=== PATIENT | female | born 1990 | race Caucasian/White ===

== ENCOUNTER 2021-04-16 07:25 | Observation (INO) | payer MEDICAID ==
[~2021-04-16] VITALS: Ht 157.5 cm; Wt 78.9 kg
[2021-04-16] MEDS ORDERED: PREN-96 PO ×2 (08:02)
[2021-04-16] MEDS ORDERED: FLUT1AER5 IN ×2 (08:09)
[2021-04-16] MEDS ORDERED: TERBUTALINE SULFATE 1 MG/ML 1ML VIAL SC SCH (09:00)
[2021-04-16] MEDS ORDERED: BETAMETHASONE ACET (30mg/5ml) 5ml Vial 6mg/ml IM SCH (09:15)
[2021-04-16 09:54] LABS: Alcohol, Urine < 3.0 mg/dL (0-10); Amphetamine Screen, Urine NEGATIVE (NEGATIVE); Barbiturate Scree,Urine NEGATIVE (NEGATIVE); Benzodiazephine Screen, Urine NEGATIVE (NEGATIVE); Cannabinoid Screen, Urine NEGATIVE (NEGATIVE); Cocaine Screen, Urine NEGATIVE (NEGATIVE)
[2021-04-16 09:56] LABS: Opiate Scree,Urine NEGATIVE (NEGATIVE); Phencyclidine Screen, Urine NEGATIVE (NEGATIVE); Urine Bacteria FEW /hpf (None Seen); Urine Blood 3+ /uL (Negative); Urine Specific Gravity 1.004 (1.001-1.035); Urine WBC 19 /hpf (0 - 5)
[2021-04-16] MEDS ORDERED: NIF10C PO ×2 (10:13)
== END 2021-04-16 10:38 | disposition home or self-care (01) ==
LOC: LDRP 07:25
PROVIDERS: ADMIT Specialist; ATTEND Specialist
DX: O60.03 Preterm labor without delivery, third trimester (principal); O46.93 Antepartum hemorrhage, unspecified, third trimester; O99.333 Smoking (tobacco) complicating pregnancy, third trimester; F17.210 Nicotine dependence, cigarettes, uncomplicated; Z3A.33 33 weeks gestation of pregnancy; Z79.899 Other long term (current) drug therapy
CPT/HCPCS: 59025; 76805; 76817; 80307; 81001; 81002; 94760; 96372; G0378; J0702; J3105

== ENCOUNTER 2021-04-17 09:22 | Observation (INO) | payer MEDICAID ==
[~2021-04-17] VITALS: Ht 157.5 cm; Wt 78.9 kg
[~2021-04-17 09:22] MED LIST: FLUT1AER5 IN; NIF10C PO; PREN-96 PO
[2021-04-17] MEDS ORDERED: BETAMETHASONE ACET (30mg/5ml) 5ml Vial 6mg/ml IM ONE (09:45)
== END 2021-04-17 10:46 | disposition home or self-care (01) ==
LOC: LDRP 09:22
PROVIDERS: ADMIT Specialist; ATTEND Specialist
DX: O60.03 Preterm labor without delivery, third trimester (principal); O99.333 Smoking (tobacco) complicating pregnancy, third trimester; F17.210 Nicotine dependence, cigarettes, uncomplicated; Z79.899 Other long term (current) drug therapy; Z3A.33 33 weeks gestation of pregnancy
CPT/HCPCS: 59025; 81002; G0378; J0702

== ENCOUNTER 2021-04-18 23:34 | Inpatient (IN) | payer MEDICAID ==
[~2021-04-18] VITALS: Ht 157.5 cm; Wt 78.9 kg
[2021-04-19] VITALS (23 sets, daily range): BP systolic 103–125; BP diastolic 55–78
[2021-04-19] MEDS: NIFEdipine 10 MG CAP PO SCH ×2 (00:18→04:02)
[2021-04-19] MEDS ORDERED: LACTATED RINGER'S 1,000 ML IV SCH (01:15)
[2021-04-19] MEDS: TERBUTALINE SULFATE 1 MG/ML 1ML VIAL SC SCH ×3 (01:16→02:11)
[2021-04-19] MEDS ORDERED: ceFAZolin 1GM/50ML 50 ML IV ONE ×2 (04:30→05:03)
[2021-04-19] MEDS ORDERED: LACTATED RINGER'S 1,000 ML IV ONE (04:30)
[2021-04-19] MEDS ORDERED: SODIUM CITR/CITRIC ACID ORAL SOLN 30 ML PO ONE (04:30)
[2021-04-19 04:54] LABS: Basophils # (auto) 0.2 10 ^3/uL (0-0.2); Basophils % (auto) 0.9 % (0.0-2.0); Eosinophils # (auto) 0 10 ^3/uL (0-0.8); Eosinophils % (auto) 0.1 % (0.0-7.0); Hematocrit 31.1 % (36.0-46.0); Hemoglobin 10.8 g/dL (12.2-16.2); Lymphocytes # (auto) 1.7 10 ^3/uL (0.4-5.4); Lymphocytes % (auto) 8.2 % (10.0-50.0); Mean Corpuscular Hemoglobin 29.3 pg (28.0-32.0); Mean Corpuscular Hgb Conc. 34.7 g/dL (32.0-36.0); Mean Corpuscular Volume 84.3 fL (80.0-100.0); Monocytes # (auto) 1.4 10 ^3/uL (0-1.3); Neutrophils # (auto) 17.3 10 ^3/uL (1.6-8.6); Neutrophils % (auto) 83.8 % (37.0-80.0); Platelet Count (auto) 271 10^3/uL (140-450); Red Blood Cells 3.69 10^6/uL (4.0-5.20); Red Cell Distribution Width 15.6 % (11.8-14.3); White Blood Cell 20.6 10^3/uL (4.4-10.8)
[2021-04-19] MEDS ORDERED: ePHEDrine SULFATE 50 MG/ML AMP IV ONE (05:06)
[2021-04-19] MEDS ORDERED: fentaNYL CITRATE 100 MCG/2 ML VL ONE (05:10)
[2021-04-19] MEDS ORDERED: MORPHINE SULF(PF) 0.5MG/ML 10ML VIAL ONE (05:10)
[2021-04-19 05:12] LABS: INR 0.92 (0.9-1.15); Partial Thromboplastin Time 22.5 sec (23.0-31.2)
[2021-04-19] MEDS ORDERED: TETRACAINE 1% INJ 2 ML VIAL IJ ONE (05:12)
[2021-04-19 05:15] LABS: Albumin 2.9 g/dL (3.4-5.0); Calcium 7.9 mg/dL (8.5-10.1); Potassium 3.4 mmol/L (3.5-5.1)
[2021-04-19 05:17] LABS: Urine Bacteria FEW /hpf (None Seen); Urine Blood Negative /uL (Negative); Urine Specific Gravity 1.003 (1.001-1.035); Urine WBC <1 /hpf (0 - 5)
[2021-04-19 05:18] LABS: BUN/Creatinine Ratio 11.1; Bilirubin, Total 0.3 mg/dL (0.2-1.0); Total Protein 6.8 g/dL (6.4-8.2)
[2021-04-19] MEDS ORDERED: SODIUM CITR/CITRIC ACID ORAL SOLN 30 ML ONE (05:21)
[2021-04-19 05:40] LABS: Amphetamine Screen, Urine NEGATIVE (NEGATIVE); Barbiturate Scree,Urine NEGATIVE (NEGATIVE); Benzodiazephine Screen, Urine NEGATIVE (NEGATIVE); Cannabinoid Screen, Urine NEGATIVE (NEGATIVE); Cocaine Screen, Urine NEGATIVE (NEGATIVE); Opiate Scree,Urine NEGATIVE (NEGATIVE); Phencyclidine Screen, Urine NEGATIVE (NEGATIVE)
[2021-04-19 05:44] LABS: Alcohol, Urine < 3.0 mg/dL (0-10)
[2021-04-19] MEDS ORDERED: ePHEDrine SULFATE 50 MG/ML AMP IV PRN (06:45)
[2021-04-19] MEDS ORDERED: DexAMETHasone SOD PHOS 10MG/1ML VIAL INJ IV PRN (06:45)
[2021-04-19] MEDS ORDERED: GUM (CHEWING) 1 GUM CHEW CHEW ONE (06:45)
[2021-04-19] MEDS ORDERED: ONDANSETRON HCL 4 MG/2 ML VIAL IV PRN ×2 (06:45)
[2021-04-19] MEDS ORDERED: NALOXONE HCL 0.4 MG/ML VIAL IV PRN (06:45)
[2021-04-19] MEDS ORDERED: KETOROLAC TROMETH 30 MG/ML 1ML VIAL IV PRN (06:45)
[2021-04-19] MEDS ORDERED: RHO (D) IMMUNE GLOBULIN 300 MCG INJ IM ONE (06:45)
[2021-04-19] MEDS ORDERED: diphenhdrAMINE HCL 50 MG/1 ML VL IV PRN (06:45)
[2021-04-19] MEDS ORDERED: ceFAZolin 1GM/50ML 50 ML IV SCH (06:45)
[2021-04-19] MEDS ORDERED: NALBUPHINE HCL 10 MG/1ml INJECTION SUBCUT ONE (06:45)
[2021-04-19] MEDS ORDERED: HYDROmorphone HCL 2 MG/ML VL IV PRN (06:45)
[2021-04-19] MEDS ORDERED: KETOROLAC TROMETH 30 MG/ML 1ML VIAL ONE (07:13)
[2021-04-19] MEDS: ACETAMINOPHEN IV 1000 MG/100ML (10MG/ML) IV PRN ×2 (10:00→22:30)
[2021-04-19] MEDS: LACTATED RINGER'S 1,000 ML IV SCH ×4 (10:00→19:05)
[2021-04-19 11:49] LABS: Urine Bacteria NONE SEEN /hpf (None Seen); Urine Blood TRACE /uL (Negative); Urine Specific Gravity 1.016 (1.001-1.035); Urine WBC 1 /hpf (0 - 5)
[2021-04-19 12:07] LABS: Alcohol, Urine < 3.0 mg/dL (0-10); Amphetamine Screen, Urine NEGATIVE (NEGATIVE); Barbiturate Scree,Urine NEGATIVE (NEGATIVE); Benzodiazephine Screen, Urine NEGATIVE (NEGATIVE); Cannabinoid Screen, Urine NEGATIVE (NEGATIVE); Cocaine Screen, Urine NEGATIVE (NEGATIVE); Opiate Scree,Urine NEGATIVE (NEGATIVE); Phencyclidine Screen, Urine NEGATIVE (NEGATIVE)
[2021-04-19] MEDS: ceFAZolin 1GM/50ML 50 ML IV SCH ×2 (13:13→21:37)
[2021-04-19] MEDS: HYDROmorphone HCL 2 MG/ML VL IV PRN ×2 (14:52→19:04)
[2021-04-20] VITALS (14 sets, daily range): BP systolic 110–131; BP diastolic 60–86
[2021-04-20] MEDS: HYDROmorphone HCL 2 MG/ML VL IV PRN (05:21)
[2021-04-20] MEDS: ceFAZolin 1GM/50ML 50 ML IV SCH (05:29)
[2021-04-20 06:07] LABS: RPR Non Reactive (Non Reactive)
[2021-04-20] MEDS ORDERED: ALBUTEROL SULF 2.5 MG/0.5ML(0.5%) NEB SOLN ONE (06:11)
[2021-04-20] MEDS ORDERED: IPRATROPIUM BROM 0.5 MG/2.5ML INH SOL ONE (06:12)
[2021-04-20] MEDS ORDERED: ALBUTEROL SULF 2.5 MG/0.5ML(0.5%) NEB SOLN NEB ONE (06:15)
[2021-04-20] MEDS ORDERED: IPRATROPIUM BROM 0.5 MG/2.5ML INH SOL NEB ONE (06:15)
[2021-04-20] MEDS ORDERED: HYDROcodone-ACET 5/325MG TAB PO PRN (06:30)
[2021-04-20] MEDS: cefTRIAXone 1GM/50ML D5W 50 ML IV SCH ×2 (06:46→09:00)
[2021-04-20 07:53] LABS: Basophils # (auto) 0.1 10 ^3/uL (0-0.2); Basophils % (auto) 0.4 % (0.0-2.0); Eosinophils # (auto) 0.2 10 ^3/uL (0-0.8); Hematocrit 27.9 % (36.0-46.0); Hemoglobin 9.4 g/dL (12.2-16.2); Lymphocytes # (auto) 1.6 10 ^3/uL (0.4-5.4); Lymphocytes % (auto) 8.3 % (10.0-50.0); Mean Corpuscular Hemoglobin 28.7 pg (28.0-32.0); Mean Corpuscular Hgb Conc. 33.7 g/dL (32.0-36.0); Monocytes # (auto) 1.2 10 ^3/uL (0-1.3); Neutrophils # (auto) 16.2 10 ^3/uL (1.6-8.6); Neutrophils % (auto) 84.3 % (37.0-80.0); Platelet Count (auto) 249 10^3/uL (140-450); Red Blood Cells 3.28 10^6/uL (4.0-5.20); Red Cell Distribution Width 15.5 % (11.8-14.3); White Blood Cell 19.2 10^3/uL (4.4-10.8)
[2021-04-20] MEDS ORDERED: IOHEXOL 350 MG/ML 100ML IJ ONE (09:55)
[2021-04-20] MEDS: DOCUSATE SOD 100 MG CAP PO SCH ×2 (10:35→22:02)
[2021-04-20] MEDS: DOCUSATE CALCIUM 240 MG CAP PO SCH (10:35)
[2021-04-20] MEDS: HYDROcodone-ACET 5/325MG TAB PO PRN ×3 (10:35→23:56)
[2021-04-20] MEDS: IBUPROFEN 800 MG TAB PO PRN ×2 (11:54→22:03)
[2021-04-20] MEDS: SIMETHICONE 80 MG CHEWABLE TABLET PO SCH ×3 (11:55→22:02)
[2021-04-20] MEDS ORDERED: FUROSEMIDE 20 MG/2 ML VIAL IV ONE (15:30)
[2021-04-20] MEDS: ALBUTEROL SULF 2.5 MG/0.5ML(0.5%) NEB SOLN NEB PRN ×3 (15:59→23:37)
[2021-04-20] MEDS: guaiFENesin-DM 100/10mg/5ml SYR PO PRN (16:21)
[2021-04-20] MEDS: levoFLOXacin 500MG 100 ML IV SCH (16:22)
[2021-04-20] MEDS ORDERED: POTASSIUM EFFERVESENT TAB 25 MEQ PO ONE (16:30)
[2021-04-20] MEDS: ACETYLCYSTEINE 10 %(100MG/ML) SOL 4ML NEB SCH ×2 (18:27→23:38)
[2021-04-21] VITALS (12 sets, daily range): BP systolic 101–127; BP diastolic 58–90
[2021-04-21] MEDS: IBUPROFEN 800 MG TAB PO PRN ×2 (07:02→14:55)
[2021-04-21] MEDS: SIMETHICONE 80 MG CHEWABLE TABLET PO SCH ×4 (07:02→23:28)
[2021-04-21] MEDS: ACETYLCYSTEINE 10 %(100MG/ML) SOL 4ML NEB SCH ×2 (07:20→11:18)
[2021-04-21] MEDS: ALBUTEROL SULF 2.5 MG/0.5ML(0.5%) NEB SOLN NEB PRN ×5 (07:20→22:46)
[2021-04-21] MEDS: DOCUSATE SOD 100 MG CAP PO SCH ×2 (09:32→23:28)
[2021-04-21] MEDS: DOCUSATE CALCIUM 240 MG CAP PO SCH (09:32)
[2021-04-21] MEDS: cefTRIAXone 1GM/50ML D5W 50 ML IV SCH (09:32)
[2021-04-21] MEDS: levoFLOXacin 500MG 100 ML IV SCH (10:24)
[2021-04-21] MEDS: BUDESONIDE (INHALATION) 0.5 MG/2 ML NEB NEB SCH ×2 (11:18→18:37)
[2021-04-21] MEDS: IPRATROPIUM BROM 0.5 MG/2.5ML INH SOL NEB PRN ×3 (11:18→22:46)
[2021-04-21] MEDS: HYDROcodone-ACET 5/325MG TAB PO PRN ×3 (11:31→23:39)
[2021-04-21] MEDS: LACTATED RINGER'S 1,000 ML IV SCH (12:04)
[2021-04-21] MEDS: guaiFENesin-DM 100/10mg/5ml SYR PO PRN ×2 (17:55→21:04)
[2021-04-22] VITALS (8 sets, daily range): BP systolic 120–134; BP diastolic 66–81
[2021-04-22] MEDS: IBUPROFEN 800 MG TAB PO PRN ×3 (03:38→19:53)
[2021-04-22] MEDS: guaiFENesin-DM 100/10mg/5ml SYR PO PRN ×2 (03:38→10:10)
[2021-04-22] MEDS: SIMETHICONE 80 MG CHEWABLE TABLET PO SCH ×4 (05:50→21:30)
[2021-04-22] MEDS: ALBUTEROL SULF 2.5 MG/0.5ML(0.5%) NEB SOLN NEB PRN ×3 (06:58→21:27)
[2021-04-22] MEDS: BUDESONIDE (INHALATION) 0.5 MG/2 ML NEB NEB SCH ×2 (06:58→21:27)
[2021-04-22] MEDS: IPRATROPIUM BROM 0.5 MG/2.5ML INH SOL NEB PRN ×2 (06:58→14:50)
[2021-04-22] MEDS: HYDROcodone-ACET 5/325MG TAB PO PRN ×3 (08:02→21:30)
[2021-04-22] MEDS: cefTRIAXone 1GM/50ML D5W 50 ML IV SCH (09:14)
[2021-04-22] MEDS: DOCUSATE CALCIUM 240 MG CAP PO SCH (10:09)
[2021-04-22] MEDS: DOCUSATE SOD 100 MG CAP PO SCH ×2 (10:09→21:30)
[2021-04-22] MEDS: levoFLOXacin 500MG 100 ML IV SCH (10:17)
[2021-04-23] VITALS (7 sets, daily range): BP systolic 111–130; BP diastolic 67–83
[2021-04-23] MEDS: HYDROcodone-ACET 5/325MG TAB PO PRN ×3 (02:48→21:54)
[2021-04-23] MEDS: IBUPROFEN 800 MG TAB PO PRN ×2 (05:46→16:06)
[2021-04-23] MEDS: SIMETHICONE 80 MG CHEWABLE TABLET PO SCH ×4 (05:47→21:53)
[2021-04-23] MEDS: ALBUTEROL SULF 2.5 MG/0.5ML(0.5%) NEB SOLN NEB PRN ×3 (06:57→18:35)
[2021-04-23] MEDS: BUDESONIDE (INHALATION) 0.5 MG/2 ML NEB NEB SCH ×2 (06:57→18:36)
[2021-04-23] MEDS: IPRATROPIUM BROM 0.5 MG/2.5ML INH SOL NEB PRN ×3 (06:57→18:36)
[2021-04-23] MEDS: cefTRIAXone 1GM/50ML D5W 50 ML IV SCH (09:32)
[2021-04-23] MEDS: levoFLOXacin 500MG 100 ML IV SCH (10:25)
[2021-04-23] MEDS: DOCUSATE CALCIUM 240 MG CAP PO SCH (11:20)
[2021-04-23] MEDS: DOCUSATE SOD 100 MG CAP PO SCH ×2 (11:20→21:53)
[2021-04-24] MEDS: IBUPROFEN 800 MG TAB PO PRN (02:58)
[2021-04-24 03:00] VITALS: BP 124/78
[2021-04-24] MEDS: SIMETHICONE 80 MG CHEWABLE TABLET PO SCH (06:13)
[2021-04-24 07:00] VITALS: BP 134/81
[2021-04-24] MEDS ORDERED: MEASLES, MUMPS & RUBELLA VAC(MMRII) 0.5ML SC ONE (08:15)
[2021-04-24] MEDS: cefTRIAXone 1GM/50ML D5W 50 ML IV SCH (09:06)
[2021-04-24 10:38] VITALS: BP 132/78
== END 2021-04-24 10:38 | disposition home or self-care (01) | DRG 540 ==
LOC: LDRP 23:34 → OBSVTOIN 04-19 04:27 → LDRP 04-19 08:09
PROVIDERS: ADMIT Specialist; ATTEND Specialist
PROC: 10D00Z0 Extraction of Products of Conception, High, Open Approach (ICD-10-PCS; principal; 2021-04-19 05:16)
DX: O60.14X0 Preterm labor third trimester with preterm delivery third trimester, not applicable or unspecified (principal); J95.821 Acute postprocedural respiratory failure; O99.52 Diseases of the respiratory system complicating childbirth; O45.93 Premature separation of placenta, unspecified, third trimester; Z20.822 Contact with and (suspected) exposure to COVID-19; F17.200 Nicotine dependence, unspecified, uncomplicated; J45.901 Unspecified asthma with (acute) exacerbation; O16.4 Unspecified maternal hypertension, complicating childbirth; O99.214 Obesity complicating childbirth; O32.1XX0 Maternal care for breech presentation, not applicable or unspecified; O99.334 Smoking (tobacco) complicating childbirth; Z37.0 Single live birth; Z3A.34 34 weeks gestation of pregnancy
CPT/HCPCS: 36415; 59025; 71045; 71275; 80053; 80307; 81001; 81002; 85025; 85049; 85610; 85730; 86592; 86850; 86870; 86900; 86901; 87426; 94640; 94760; 94762; 96360; 96361; 96365; 96366; 96372; 96374; 96375; G0378; J0131; J0690; J0696; J1885; J1956

== ENCOUNTER 2022-04-30 14:41 | Emergency (ER) | payer MEDICAID ==
[~2022-04-30] VITALS: Ht 154.9 cm; Wt 74.8 kg
[~2022-04-30 14:41] MED LIST changes: -NIF10C PO
[2022-04-30 15:53] LABS: Urine Amorphous Crystal FEW /hpf (None Seen); Urine Bacteria FEW /hpf (None Seen); Urine Blood Negative /uL (Negative); Urine Specific Gravity 1.004 (1.001-1.035); Urine WBC 5 /hpf (0 - 5)
[2022-04-30 16:15] LABS: Basophils # (auto) 0 10 ^3/uL (0-0.2); Basophils % (auto) 0.1 % (0.0-2.0); Eosinophils # (auto) 0.1 10 ^3/uL (0-0.8); Eosinophils % (auto) 1.5 % (0.0-7.0); Hematocrit 33.7 % (36.0-46.0); Hemoglobin 11.3 g/dL (12.2-16.2); Lymphocytes # (auto) 0.7 10 ^3/uL (0.4-5.4); Lymphocytes % (auto) 10.3 % (10.0-50.0); Mean Corpuscular Hemoglobin 31.3 pg (28.0-32.0); Mean Corpuscular Hgb Conc. 33.4 g/dL (32.0-36.0); Mean Corpuscular Volume 93.7 fL (80.0-100.0); Monocytes # (auto) 0.5 10 ^3/uL (0-1.3); Monocytes % (auto) 7.7 % (0.0-12.0); Neutrophils # (auto) 5.4 10 ^3/uL (1.6-8.6); Neutrophils % (auto) 80.4 % (37.0-80.0); Red Blood Cells 3.59 10^6/uL (4.0-5.20); Red Cell Distribution Width 13.5 % (11.8-14.3); White Blood Cell 6.7 10^3/uL (4.4-10.8)
[2022-04-30 16:25] LABS: BUN/Creatinine Ratio 4.8; Calcium 7.9 mg/dL (8.5-10.1)
[2022-04-30 16:34] LABS: Bilirubin, Total 0.3 mg/dL (0.2-1.0); Total Protein 6.7 g/dL (6.4-8.2)
[2022-04-30] MEDS ORDERED: CEPH-509 PO (17:29)
[2022-04-30 18:09] VITALS: BP 112/64
== END 2022-04-30 18:10 | disposition home or self-care (01) ==
LOC: ER 14:41
DX: O23.42 Unspecified infection of urinary tract in pregnancy, second trimester (principal); O99.332 Smoking (tobacco) complicating pregnancy, second trimester; O99.512 Diseases of the respiratory system complicating pregnancy, second trimester; J45.909 Unspecified asthma, uncomplicated; Z3A.22 22 weeks gestation of pregnancy
CPT/HCPCS: 36415; 76805; 80053; 81001; 83690; 84702; 85025

== ENCOUNTER → 2022-07-28 | Outpatient (CLI) | payer MEDICAID ==
[~2022-07-28] MED LIST changes: +CEPH-509 PO
[2022-07-28 14:46] LABS: Basophils # (auto) 0.1 10 ^3/uL (0-0.2); Basophils % (auto) 0.6 % (0.0-2.0); Eosinophils # (auto) 0.3 10 ^3/uL (0-0.8); Eosinophils % (auto) 2.7 % (0.0-7.0); Hematocrit 32.9 % (36.0-46.0); Hemoglobin 10.8 g/dL (12.2-16.2); Lymphocytes # (auto) 1.5 10 ^3/uL (0.4-5.4); Lymphocytes % (auto) 12.8 % (10.0-50.0); Mean Corpuscular Hemoglobin 28.5 pg (28.0-32.0); Mean Corpuscular Hgb Conc. 32.7 g/dL (32.0-36.0); Mean Corpuscular Volume 87.1 fL (80.0-100.0); Monocytes # (auto) 0.6 10 ^3/uL (0-1.3); Monocytes % (auto) 5.6 % (0.0-12.0); Neutrophils % (auto) 78.3 % (37.0-80.0); Red Blood Cells 3.77 10^6/uL (4.0-5.20); Red Cell Distribution Width 13.7 % (11.8-14.3); White Blood Cell 11.5 10^3/uL (4.4-10.8)
[2022-07-28 15:21] LABS: Amphetamine Screen, Urine NEGATIVE (NEGATIVE); Barbiturate Scree,Urine NEGATIVE (NEGATIVE); Benzodiazephine Screen, Urine NEGATIVE (NEGATIVE); Cannabinoid Screen, Urine NEGATIVE (NEGATIVE); Cocaine Screen, Urine NEGATIVE (NEGATIVE); Opiate Scree,Urine NEGATIVE (NEGATIVE); Phencyclidine Screen, Urine NEGATIVE (NEGATIVE)
[2022-07-29 06:22] LABS: RPR Non Reactive (Non Reactive)
== END | disposition home or self-care (01) ==
LOC: LAB 14:14
PROVIDERS: ATTEND Obstetrics & Gynecology Obstetrics
DX: Z34.80 Encounter for supervision of other normal pregnancy, unspecified trimester (principal); Z31.430 Encounter of female for testing for genetic disease carrier status for procreative management; Z36.0 Encounter for antenatal screening for chromosomal anomalies; N39.0 Urinary tract infection, site not specified; Z3A.00 Weeks of gestation of pregnancy not specified
CPT/HCPCS: 36415; 80307; 83036; 84112; 84702; 85025; 86592; 86703; 86762; 86850; 86900; 86901; 87086; 87340

== ENCOUNTER 2022-08-22 05:43 | Inpatient (IN) | payer MEDICAID ==
[~2022-08-22] VITALS: Ht 157.5 cm; Wt 80.7 kg
[2022-08-22] VITALS (14 sets, daily range): BP systolic 97–115; BP diastolic 50–72
[2022-08-22] MEDS ORDERED: LACTATED RINGER'S 1,000 ML IV ONE (07:00)
[2022-08-22] MEDS ORDERED: LACTATED RINGER'S 1,000 ML IV SCH (07:00)
[2022-08-22] MEDS ORDERED: ceFAZolin 1GM/50ML 50 ML IV ONE (07:00)
[2022-08-22] MEDS ORDERED: TETRACAINE 1% INJ 2 ML VIAL IJ ONE (07:03)
[2022-08-22] MEDS ORDERED: SUCCINYLCHOLINE CHLORIDE 20 MG/ML 10ML VIAL IV ONE (07:04)
[2022-08-22] MEDS ORDERED: MORPHINE SULF PF 5 MG/10 ML VIAL ONE (07:09)
[2022-08-22] MEDS ORDERED: SODIUM CHLORIDE LOCK 10 ML ONE (07:10)
[2022-08-22] MEDS ORDERED: oxyTOCIN 10 UNIT/ML 10ML VIAL ONE (07:10)
[2022-08-22] MEDS ORDERED: MIDAZOLAM HCL 2MG/2ML 2ml VIAL (1mg/ml) ONE (07:10)
[2022-08-22] MEDS ORDERED: EPINEPHrine HCL 1 MG/1 ML AMP ONE (07:10)
[2022-08-22] MEDS ORDERED: fentaNYL CITRATE 100 MCG/2 ML VL ONE (07:10)
[2022-08-22 07:24] LABS: Basophils # (auto) 0.1 10 ^3/uL (0-0.2); Basophils % (auto) 0.6 % (0.0-2.0); Eosinophils # (auto) 0.2 10 ^3/uL (0-0.8); Eosinophils % (auto) 1.7 % (0.0-7.0); Hematocrit 30.7 % (36.0-46.0); Hemoglobin 10.5 g/dL (12.2-16.2); Lymphocytes # (auto) 1.6 10 ^3/uL (0.4-5.4); Mean Corpuscular Hemoglobin 28.9 pg (28.0-32.0); Mean Corpuscular Hgb Conc. 34.1 g/dL (32.0-36.0); Mean Corpuscular Volume 84.8 fL (80.0-100.0); Monocytes # (auto) 0.7 10 ^3/uL (0-1.3); Monocytes % (auto) 6.1 % (0.0-12.0); Neutrophils # (auto) 8.4 10 ^3/uL (1.6-8.6); Neutrophils % (auto) 76.6 % (37.0-80.0); Red Blood Cells 3.62 10^6/uL (4.0-5.20); Red Cell Distribution Width 14.4 % (11.8-14.3); White Blood Cell 10.9 10^3/uL (4.4-10.8)
[2022-08-22 07:29] LABS: Urine Bacteria FEW /hpf (None Seen); Urine Blood Negative /uL (Negative); Urine Specific Gravity 1.005 (1.001-1.035); Urine WBC 3 /hpf (0 - 5)
[2022-08-22 07:32] LABS: Alcohol, Urine < 3.0 mg/dL (0-10); Amphetamine Screen, Urine NEGATIVE (NEGATIVE); Barbiturate Scree,Urine NEGATIVE (NEGATIVE); Benzodiazephine Screen, Urine NEGATIVE (NEGATIVE); Cannabinoid Screen, Urine NEGATIVE (NEGATIVE); Cocaine Screen, Urine NEGATIVE (NEGATIVE); Opiate Scree,Urine NEGATIVE (NEGATIVE); Phencyclidine Screen, Urine NEGATIVE (NEGATIVE)
[2022-08-22 07:39] LABS: INR 0.93 (0.9-1.15); Partial Thromboplastin Time 25.4 sec (24.6-33.4)
[2022-08-22] MEDS ORDERED: ALBUTEROL SULF 2.5 MG/0.5ML(0.5%) NEB SOLN ONE (07:43)
[2022-08-22] MEDS ORDERED: ALBUTEROL SULF 2.5 MG/0.5ML(0.5%) NEB SOLN NEB ONE (07:45)
[2022-08-22 07:48] LABS: Albumin 2.7 g/dL (3.4-5.0); Calcium 8.4 mg/dL (8.5-10.1)
[2022-08-22 07:51] LABS: BUN/Creatinine Ratio 9.7; Bilirubin, Total 0.4 mg/dL (0.2-1.0); Total Protein 6.6 g/dL (6.4-8.2)
[2022-08-22] MEDS ORDERED: MORPHINE SULFATE 4 MG/ML SYR/VIAL IV PRN (09:00)
[2022-08-22] MEDS ORDERED: METOCLOPRAMIDE HCL 5MG/ml INJ 2ml VIAL IV PRN (09:00)
[2022-08-22] MEDS ORDERED: NALOXONE HCL 0.4 MG/ML VIAL IV PRN (09:00)
[2022-08-22] MEDS ORDERED: KETOROLAC TROMETH 30 MG/ML 1ML VIAL IV ONE ×2 (09:00→13:30)
[2022-08-22] MEDS ORDERED: HYDROmorphone HCL 2 MG/ML VL/or syr IV PRN ×2 (09:00)
[2022-08-22] MEDS ORDERED: diphenhdrAMINE HCL 50 MG/1 ML VL IV PRN (09:00)
[2022-08-22] MEDS ORDERED: RHO (D) IMMUNE GLOBULIN 300 MCG INJ IM ONE (13:15)
[2022-08-22] MEDS ORDERED: ePHEDrine SULFATE 50 MG/ML AMP IV PRN (23:00)
[2022-08-22] MEDS ORDERED: KETOROLAC TROMETH 30 MG/ML 1ML VIAL IV PRN (23:00)
[2022-08-22] MEDS ORDERED: ONDANSETRON HCL 4 MG/2 ML VIAL IV PRN (23:00)
[2022-08-22] MEDS ORDERED: GUM (CHEWING) 1 GUM CHEW CHEW ONE (23:00)
[2022-08-23] VITALS (13 sets, daily range): BP systolic 89–113; BP diastolic 50–79
[2022-08-23] MEDS ORDERED: DERMOPLAST 60ML BOTTLE TOP PRN
[2022-08-23] MEDS ORDERED: WITCH HAZEL-GLYCERIN PAD TOP PRN
[2022-08-23] MEDS ORDERED: KETOROLAC TROMETH 30 MG/ML 1ML VIAL IV ONE
[2022-08-23] MEDS ORDERED: PHISODERM TOP SOLN 240ML BTL TOP PRN
[2022-08-23] MEDS ORDERED: HYDR-4902 PO (04:18)
[2022-08-23] MEDS ORDERED: DOCU100C10 PO (04:18)
[2022-08-23] MEDS ORDERED: IBU600T PO (04:18)
[2022-08-23] MEDS: IBUPROFEN 600 MG TAB PO SCH ×3 (05:57→18:02)
[2022-08-23 06:43] LABS: Basophils # (auto) 0 10 ^3/uL (0-0.2); Basophils % (auto) 0.2 % (0.0-2.0); Eosinophils # (auto) 0.1 10 ^3/uL (0-0.8); Eosinophils % (auto) 0.3 % (0.0-7.0); Hematocrit 24.6 % (36.0-46.0); Hemoglobin 8.6 g/dL (12.2-16.2); Lymphocytes # (auto) 1.4 10 ^3/uL (0.4-5.4); Lymphocytes % (auto) 9.5 % (10.0-50.0); Mean Corpuscular Hemoglobin 29.5 pg (28.0-32.0); Mean Corpuscular Hgb Conc. 34.8 g/dL (32.0-36.0); Mean Corpuscular Volume 84.7 fL (80.0-100.0); Monocytes # (auto) 1.1 10 ^3/uL (0-1.3); Monocytes % (auto) 7.3 % (0.0-12.0); Neutrophils # (auto) 12.4 10 ^3/uL (1.6-8.6); Neutrophils % (auto) 82.7 % (37.0-80.0); Red Blood Cells 2.91 10^6/uL (4.0-5.20)
[2022-08-23 07:06] LABS: RPR Non Reactive (Non Reactive)
[2022-08-23] MEDS: HYDROcodone-ACET 5/325MG TAB PO PRN ×3 (11:34→21:37)
[2022-08-23] MEDS: SIMETHICONE 80 MG CHEWABLE TABLET PO PRN ×2 (15:22→21:36)
[2022-08-23] MEDS ORDERED: DOCUSATE SOD 100 MG CAP PO SCH (22:00)
[2022-08-24] MEDS: IBUPROFEN 600 MG TAB PO SCH ×2 (00:39→06:03)
[2022-08-24 03:20] VITALS: BP 112/67
[2022-08-24 07:00] VITALS: BP 106/63
[2022-08-24] MEDS: SIMETHICONE 80 MG CHEWABLE TABLET PO PRN (09:55)
[2022-08-24] MEDS: HYDROcodone-ACET 5/325MG TAB PO PRN (09:56)
[2022-08-24] MEDS ORDERED: ALBUTEROL SULF 2.5 MG/0.5ML(0.5%) NEB SOLN NEB PRN (10:45)
[2022-08-24] MEDS ORDERED: IPRATROPIUM BROM 0.5 MG/2.5ML INH SOL NEB PRN (10:45)
[2022-08-24 11:00] VITALS: BP 122/62
[2022-08-24 11:20] VITALS: BP 122/62
== END 2022-08-24 15:55 | disposition home or self-care (01) | DRG 539 ==
LOC: LDRP 05:43
PROVIDERS: ADMIT Obstetrics & Gynecology; ATTEND Obstetrics & Gynecology
PROC: 0UL70CZ Occlusion of Bilateral Fallopian Tubes with Extraluminal Device, Open Approach (ICD-10-PCS; 2022-08-22)
PROC: 3E0234Z Introduction of Serum, Toxoid and Vaccine into Muscle, Percutaneous Approach (ICD-10-PCS; 2022-08-22)
PROC: 10D00Z1 Extraction of Products of Conception, Low, Open Approach (ICD-10-PCS; principal; 2022-08-22 08:20)
DX: O34.211 Maternal care for low transverse scar from previous cesarean delivery (principal); R71.0 Precipitous drop in hematocrit; O99.214 Obesity complicating childbirth; J45.909 Unspecified asthma, uncomplicated; O26.893 Other specified pregnancy related conditions, third trimester; Z20.822 Contact with and (suspected) exposure to COVID-19; O99.52 Diseases of the respiratory system complicating childbirth; Z37.0 Single live birth; Z30.2 Encounter for sterilization; Z3A.39 39 weeks gestation of pregnancy; Z67.41 Type O blood, Rh negative
CPT/HCPCS: 36415; 59025; 71046; 80053; 80307; 81001; 85025; 85610; 85730; 86592; 86850; 86900; 86901; 87426; 90384; 94640; 94760; 94762; 96360; 96361; 96372; 96374; 96375; G0378; J0171; J0330; J0690; J1885; J2250; J2590

== ENCOUNTER 2022-09-17 13:59 | Emergency (ER) | payer MEDICAID ==
[~2022-09-17] VITALS: Ht 154.9 cm; Wt 72.5 kg
[~2022-09-17 13:59] MED LIST changes: -CEPH-509 PO; +DOCU100C10 PO; +HYDR-4902 PO; +IBU600T PO
[2022-09-17 15:47] VITALS: BP 126/75
[2022-09-17] MEDS ORDERED: IBUP600T27 PO (16:05)
[2022-09-17] MEDS ORDERED: CEPH500C PO (16:05)
== END 2022-09-17 16:11 | disposition home or self-care (01) ==
LOC: ER 13:59
DX: S31.109D Unspecified open wound of abdominal wall, unspecified quadrant without penetration into peritoneal cavity, subsequent encounter (principal); J45.909 Unspecified asthma, uncomplicated; F17.210 Nicotine dependence, cigarettes, uncomplicated; Z79.1 Long term (current) use of non-steroidal anti-inflammatories (NSAID); Z79.899 Other long term (current) drug therapy; X58.XXXD Exposure to other specified factors, subsequent encounter

== ENCOUNTER 2023-02-15 11:43 | Emergency (ER) | payer MEDICAID ==
[~2023-02-15] VITALS: Ht 154.9 cm; Wt 76.9 kg
[~2023-02-15 11:43] MED LIST changes: +ALBUAER3 IN; +AZITTAB PO; +CEPH500C PO; +IBUP600T27 PO; +METH4PAK PO
[2023-02-15 14:59] VITALS: BP 125/77
[2023-02-15] MEDS ORDERED: PRED20TA2 PO (15:24)
[2023-02-15] MEDS ORDERED: IPRATROPIUM BROM 0.5 MG/2.5ML INH SOL NEB ONE (15:30)
[2023-02-15] MEDS ORDERED: ALBUTEROL SULF 2.5 MG/0.5ML(0.5%) NEB SOLN NEB ONE (15:30)
[2023-02-15] MEDS ORDERED: DexAMETHasone SOD PHOS 10MG/1ML VIAL INJ IM ONE (15:30)
== END 2023-02-15 16:42 | disposition home or self-care (01) ==
LOC: ER 11:43
DX: J45.901 Unspecified asthma with (acute) exacerbation (principal); F17.210 Nicotine dependence, cigarettes, uncomplicated
CPT/HCPCS: 71045; 94640; 96372; 99283; J1100; J7644